=== PATIENT | female | born 1970 | race Caucasian/White ===

== ENCOUNTER 2025-08-09 19:14 | Emergency (ER) | payer BC, SELFPAY ==
[2025-08-09 19:19] VITALS: BP 170/89; PULSE 89; TEMP 37.1; O2SAT 97; BMI 42.0
--- NOTE | 2025-08-09 19:48 | ED_ITS ---
HPI - Allergic Reaction General Chief complaint: Allergic Reaction Stated complaint: Allergic Reaction Time Seen by Provider: 08/09/25 19:25 Source: patient Mode of arrival: walk-in History of Present Illness HPI narrative: This 55-year-old female who has a soy allergy presents for evaluation of throat swelling and itching. The patient states she is allergic to soy and last night had a shredded chicken sandwich that had been cooked in some soup that likely contains soy. She took a Benadryl this morning. She denies any difficulty breathing but states she feels like her throat is somewhat swollen. She denies any nausea or vomiting. She does not have any chest pain or shortness of breath. Related Data Allergies Allergy/AdvReac Type Severity Reaction Status Date / Time No Known Drug Allergies Allergy Verified 08/09/25 19:19 Review of Systems ROS Status of ROS 10 or more systems reviewed and unremark able except as noted in history and below PFSH PFSH Social History Little interest or pleasure in doing things: not at all Feeling down, depressed, or hopeless: not at all Exam Narrative Exam Narrative: Vital signs and Nursing Notes reviewed: Patient is afebrile with a normal pulse, blood pressure is elevated 170/89, she is not hypoxic with pulse ox of 97% on room air General: Awake, alert, oriented, no acute distress, lying comfortably on the stretcher-speaking complete sentences, no distress noted HEENT: Normocephalic atraumatic, mucous membranes are moist and pink, eyes are clear, normal conjunctiva, vision is grossly intact, posterior pharynx is normal in appearance without swelling of the tongue, uvula or pharyngeal soft tissues, no pooling of secretions, no sublingual swelling or swelling in the anterior neck Neck: Supple, no stridor Chest: Lungs are clear to auscultation with good air entry, there is no wheezing rhonchi or rales appreciated no accessory muscle use, patient is speaking in complete sentences- CVS: Regular rate and rhythm S1-S2, no murmurs rubs or gallops, pulses are brisk and equal bilaterally ABD: Soft, nondistended, nontender, no rebound guarding or rigidity, bowel sounds are normal, no pulsatile masses appreciated Extremities: Moving all extremities, no lower extremity tenderness or swelling noted, negative Homans' sign, pulses are brisk and equal bilaterally Skin: Normal in appearance without urticaria, pallor or other rash Neuro: No focal deficits Constitutional Vital Signs, click to edit/add: Last Vital Signs Temp 98.7 F 08/09/25 19:19 Pulse 89 08/09/25 19:19 Resp 16 08/09/25 19:19 BP 170/89 H 08/09/25 19:19 Pulse Ox 97 08/09/25 19:19 O2 Del Method Room Air 08/09/25 19:19 Course Vital Signs Vital signs: Vital Signs Temperature 98.7 F 08/09/25 19:19 Pulse Rate 89 08/09/25 19:19 Respiratory Rate 16 08/09/25 19:19 Blood Pressure 170/89 H 08/09/25 19:19 Pulse Oximetry 97 08/09/25 19:19 Oxygen Delivery Method Room Air 08/09/25 19:19 Temperature 98.7 F 08/09/25 19:19 Pulse Rate 89 08/09/25 19:19 Respiratory Rate 16 08/09/25 19:19 Blood Pressure 170/89 H 08/09/25 19:19 Pulse Oximetry 97 08/09/25 19:19 Oxygen Delivery Method Room Air 08/09/25 19:19 MDM - Allergic Reaction MDM Narrative Medical decision making narrative: This 55-year-old female who is allergic to soy presents for evaluation of some throat swelling and itching after having a shredded chicken sandwich that had been cooked in a soup that likely contained soy last night for dinner. She took a Benadryl earlier in the day. She does not have any diffuse hives. There is no swelling of her tongue, uvula or pharyngeal soft tissues, she does not have any stridor, her vital signs are stable with a mild elevation in her blood pressure. An IV was placed and she was medicated with IV Pepcid, Solu-Medrol and Benadryl. On reevaluation she feels that her symptoms have improved. She will be discharged home with a prescription for Solu-Medrol and Pepcid. She states she will be more diligent and not eating things that contain soy in the future. She found out that she had a soy allergy after having years of hives and undergoing extensive allergy testing. She does not have any angioedema, her lungs are clear, she does not have any oxygen requirements and is stable for discharge. Discharge Plan Discharge Chief Complaint: Allergic Reaction Clinical Impression: Allergic reaction Patient Disposition: Home, Self-Care Time of Disposition Decision: 20:42 Condition: Good Print Language: Japanese Instructions: General Allergic Reaction (ED) Referrals: HEIDY MELLO [Primary Care Provider, [facility]] - 1 week
[2025-08-09] MEDS: FAMOTIDINE/PF 20 MG/2 ML VIAL IV (19:56)
[2025-08-09] MEDS: DIPHENHYDRAMINE HCL 50 MG/ML VIAL 25 MG IVP (19:57)
[2025-08-09] MEDS: METHYLPREDNISOLONE SOD SUCC PF 125 MG/2 ML VIAL IVP (19:57)
--- OUTSIDE RECORDS SUMMARY | 2025-08-09 20:00 | XMS_ITS | Clinical Summary ---
Author Organization [facility] Address [address] [place], [place] [address] Care Team Providers Care Diesel Technician Mechanic Name Role Phone Jeffry Encarnacion DO Primary Care Provider [phone] Ben Samayoa MD Unavailable Allergies Active AllergyReactionsCriticalityNoted AxwfDgnaqjapFgjUeawo68/28/2024 Medications MedicationSigDispense QuantityRefillsLast FilledStart DateEnd DateStatus ICER MACHINE OPERATOR THYROID 120 mg tablet every 48 hours.12/31/2023ctive ICER MACHINE OPERATOR THYROID 90 mg tablet every 48 hours.01/24/2024ctive Melatonin 5 mg cap Take by mouth daily at bedtime.Active ibuprofen (MOTRIN) 800 mg tablet Take 800 mg by mouth two times a day.Active cetirizine (ZYRTEC) 10 mg tablet Take 10 mg by mouth once daily.Active evolocumab 140 mg/mL subcutaneous pen injector (REPISIDROA RUBY) Indications:Familial hypercholesteremiaInject 140 mg subcutaneously every 2 weeks. 6 Each ctive Active Problems ProblemNoted DateDiagnosed DateObesity, Class II, BMI 35-39.9004/14/2024Familial etxxzvalionwtmxgwr43/28/2024Statin pcaokqtpjro05/28/2024Family history of cardiac kekvnetr78/28/2024 Social History Tobacco UseTypesPacks/DayYears UsedDateSmoking Tobacco: NeverSmokeless Tobacco: NeverAlcohol UseStandard Drinks/WeekCommentsNot Currently0 (1 standard drink = 0.6 oz pure alcohol)PHQ-2AnswerDate RecordedPHQ-2 [id number] Deprivation IndexAnswerDate RecordedNational Score (1-100), lower number is lower tuep638704/14/2024State Score (1-10), lower number is lower scsg890 Data from: https://www.neighborhoodatlas.medicine.[facility]/. Last address used for [address] [facility] [id number] and Gender InformationValueDate RecordedSex Assigned at EahiwHpmnwq64/08/2024 6:01 PM EST Legal DvjXgvvfa42/08/2024 7:50 AM ESTGender GnpugtchMlkdga72/08/2024 6:01 PM EST Sexual KjgofrwjepsBbpopuap57/08/2024 6:01 PM EST Last Filed Vital Signs Vital SignReadingTime TakenCommentsBlood Tfatzlrg145/78004/14/2024 11:52 AM EDT Jrupd732904/14/2024 11:52 AM EDTTemperature--Respiratory Rate--Oxygen Saturation-- Inhaled Oxygen Concentration--Gdpkrw672.6 kg (239 lb 8 oz)04/14/2024 11:52 AM MTWFovwhr110.4 cm (5' 5.5 )04/14/2024 11:52 AM EDTBody Mass Index39.25004/14/2024 11:52 AM EDT Plan of Treatment Health MaintenanceDue DateLast DoneCommentsAnxiety Lueilrwdd19/24/1988Depression Zwtexvlre69/24/1988HIV Yswxybtvn73/24/1988Hepatitis C Ixkvriaae65/24/1988 Hepatitis B Vaccine (1 of 3 - 19+ 3-dose series)1989Cervical Cancer Vcdzsktut57/24/1991Mammogram Hfarmjazx83/24/2010CT Rfdwqdtmiktt34/24/2015 Cologuard (FIT-DNA)06/10/20155007Fmncyvxpeej47/24/2015Colorectal Cancer Screening 2015Diabetes Rwebbrwkn34/24/2015Fecal Occult Blood2015Sigmoidoscopy 2015Pneumococcal Vaccine: 50+ (1 of 1 - PCV)2020Shingrix Vaccine (1 of 2)2020DTaP,Tdap,Td Vaccine (2 - Td or Tdap)/10/2014Covid-19 Vaccine (1 - 2024- season)2025Influenza Vaccine (#1)2025Lipid Pkagvsvzi69SV Vaccine (1 - 1-dose 75+ series)2045 Goals GoalPatient Goal TypeAssociated ProblemsRecent ProgressPatient-Stated?Author Blood Pressure < 140/90 Blood Arlbveqk390/78(04/14/2024 11:52 AM EDT)Ben Fung MD Procedures Procedure NamePriorityDate/TimeAssociated DiagnosisCommentsLIPID PANEL, OHROWVDXOGHcvkksr03/28/2024 1:14 PM EDT Familial hypercholesteremia from Last 3 Months or Most Recently Relevant to Health Maintenance Results * (ABNORMAL) LIPID PANEL, NONFASTING (04/14/2024 1:14 PM EDT)ComponentValueRef RangeTest MethodAnalysis TimePerformed AtPathologist SignatureTotal Cholesterol, Uiiughxblj543(H)<200 mg/dL04/14/2024 5:01 PM EDC[facility] LABComment: <200 mg/dL, Desirable 200-239 mg/dL, Borderline high >239 mg/dL, High Triglycerides, Okyflzuhnc977(H)<150 mg/dL04/14/2024 5:01 PM EDCLEVEL[facility] LABComment: <150 mg/dL, Normal 150-199 mg/dL, Borderline high 200-499 mg/dL, High >499 mg/dL, Very high HDL Cholesterol, Mkjekudyim52>39 mg/dL04/14/2024 5:01 PM [facility]Comment: 40-59 mg/dL, Acceptable >59 mg/dL, High: Negative risk factor for coronary heart disease <40 mg/dL, Low: Positive risk factor for coronary heart disease LDL Cholesterol Calculated, Zhvfptjrxe574(H)<100 mg/dL04/14/2024 5:01 PM EDT [facility] LABComment: <100 mg/dL, Optimal 100-129 mg/dL, Near optimal/above optimal 130-159 mg/dL, Borderline high 160-189 mg/dL, High >189 mg/dL, Very high Secondary prevention optimal LDL Cholesterol levels are recommended to be < 70 mg/dL Non HDL Cholesterol, Gktejdnbne172(H)<130 mg/dL04/14/2024 5:01 PM [facility]Comment: <130 mg/dL, Optimal 130-159 mg/dL, Near optimal/above optimal 160-189 mg/dL, Borderline high 190-219 mg/dL, High >219 mg/dL, Very high Secondary prevention optimal non HDL Cholesterol levels are recommended to be <100 mg/dL VLDL Cholesterol, Hatxqmqskd52(H)<30 mg/dL04/14/2024 5:01 PM [facility] LABTotal Chol/HDL Ratio, Nonfasting4.35<5.10 mg/dL04/14/2024 5:01 PM [facility] LABLDL/HDL Ratio, Nonfasting2.71(H)<2.54 mg/dL 04/14/2024 5:01 PM [facility] LABComment: Reference: 1. National Cholesterol Education Program ATP III Guideline At-A-Glance Quick Desk Reference: National Heart, Lung, and Blood [place]. National Institutes of Health. 2001: NIH Publication No. 01-3305. 2. An International Atherosclerosis Society position paper: global recommendations for the management of dyslipidemia: executive summary, Atherosclerosis. 2014: 232(2):410-413. Specimen (Source)Anatomical Location / LateralityCollection Method / Volume Collection TimeReceived TimeBloodBLOOD SPECIMEN / UnknownVenipuncture / Unknown 04/14/2024 1:14 PM EDT04/14/2024 1:14 PM EDT Narrative Authorizing ProviderResult TypeResult StatusLupaolo Samayoa MDLABORATORYFinal Result Performing OrganizationAddressCity/State/ZIP CodePhone Number [facility] [address] [phone], from Last 3 Months or Most Recently Relevant [place] [address] Care Teams Team MemberRelationshipSpecialtyStart DateEnd Date Jeffry Encarnacion DO [address] [place] [id number] PCP - GeneralFamily Medicine10/24/23 Ben Samayoa MD [address] [place] [address] Primary Staff PhysicianCardiology04/14/24
--- OUTSIDE RECORDS SUMMARY | 2025-08-09 20:00 | XMS_ITS | Clinical Summary ---
Author Organization [facility] Address [address] [place] [address] Care Team Providers Care Crop Farmers Name Role Phone Jeffry Encarnacion Primary Care Provider [phone] Allergies Active AllergyReactionsCriticalityNoted DhtzYsafljssOhuuxjpwcbwy55/22/2022 Medications MedicationSigDispense QuantityRefillsLast FilledStart DateEnd DateStatus cholecalciferol (Vitamin D-3) 25 MCG (1000 UT) tablet Take 2 tablets by mouth in the morning.Active doxycycline (Vibramycin) 100 mg capsule take 1 capsule by mouth twice a day for 10 daysActive levothyroxine (Synthroid, Levoxyl) 125 mcg tablet Active Social History Tobacco UseTypesPacks/DayYears UsedDateSmoking Tobacco: Never Tobacco Cessation:Counseling Given: Not Answered [place] Safety & EnvironmentAnswerDate RecordedFear of Current or Ex-PartnerNot on file10/09/2023Emotionally AbusedNot on file10/09/2023hysically AbusedNot on file10/09/2023Sexually AbusedNot on file10/09/2023hysically or Sexually Abused Not on file10/09/2023CommentsUnknownSex and Gender InformationValueDate RecordedSex Assigned at BirthNot on fileLegal EaxRpzedv47/30/2022 12:41 AM EDT Gender IdentityNot on fileSexual OrientationNot on file Last Filed Vital Signs Vital SignReadingTime TakenCommentsBlood Pressure--Pulse--Temperature-- Respiratory Rate--Oxygen Saturation--Inhaled Oxygen Concentration--Lhtwdn340 kg (223 lb)11/28/2021 12:42 PM ZPFIotrhw583.6 cm (5' 6 )12/05/2021 9:00 AM EDTBody Mass Index35.9904 12:42 PM EDT Plan of Treatment Health MaintenanceDue DateLast DoneCommentsCT Qjwgxxrkzzkd1970Colonoscopy 1970Colorectal Cancer Jdzmayzui1970FIT-DNA1970FIT1970 FOBT1970 9861Htxqxinsdmzhw1970Depression Iclifmbmz09/24/1982Hepatitis B Vaccines (1 of 3 - 19+ 3-dose series)1989Pap Smear1991Cervical Cancer Nydebdbdu47/24/2000HPV/Qbpigu0906/10/20002983Ccdotulhk67/24/2010Zoster Vaccines (1 of 2)2020Adult Ovespce51/10/2014Influenza Vaccine (#1) 2025HIB VaccinesAged OutNo longer eligible based on patient's age to complete this topicHPV VaccinesAged OutNo longer eligible based on patient's age to complete this topicIPV VaccinesAged OutNo longer eligible based on patient's age to complete this topicMeningococcal B VaccineAged OutNo longer eligible based on patient's age to complete this topicMeningococcal VaccineAged OutNo longer eligible based on patient's age to complete this topicPneumococcal Vaccine: Pediatrics (0 to 5 Years) and At-Risk Patients (6 to 64 Years)Aged Out No longer eligible based on patient's age to complete this topicRotavirus VaccinesAged OutNo longer eligible based on patient's age to complete this topic Insurance Care Teams Team MemberRelationshipSpecialtyStart DateEnd Date Jeffry Encarnacion DO [address] [place] [address] PCP - [facility]04/15/22
--- OUTSIDE RECORDS SUMMARY | 2025-08-09 20:00 | XMS_ITS | Clinical Summary ---
Author Organization [facility] Address [address] [place] [address] Care Team Providers Care General Hardware Salesperson Name Role Phone Jeffry Encarnacion MD Primary Care Provider [phone] Allergies No known active allergies Medications MedicationSigDispense QuantityRefillsLast FilledStart DateEnd DateStatus levothyroxine (Synthroid, Levoxyl) 125 MCG tablet Active EPINEPHrine (Epipen) 0.3 MG/0.3ML injection syringe Indications:Allergy to honey bee venomInject 0.3 mL (0.3 mg) as directed if needed for anaphylaxis. Call 911 after use. 2 each ctive Active Problems ProblemNoted DateDiagnosed DateAllergy to honey bee venom04/09/2023 Social History Tobacco UseTypesPacks/DayYears UsedDateSmoking Tobacco: NeverSmokeless Tobacco: Never Tobacco Cessation:Counseling Given: Not Answered CommentsUnknownSex and Gender InformationValueDate RecordedSex Assigned at BirthNot on fileLegal NusAkvwne91/15/2023 6:57 PM EDTGender IdentityNot on fileSexual OrientationNot on file Last Filed Vital Signs Vital SignReadingTime TakenCommentsBlood Pressure--Pulse--Temperature-- Respiratory Rate--Oxygen Saturation--Inhaled Oxygen Concentration--Ynjcib382 kg (235 lb)04/09/2023 3:01 PM EUOEtlgri511.6 cm (5' 6 )04/09/2023 3:01 PM EDTBody Mass Index37.9304/09/2023 3:01 PM EDT Plan of Treatment Not on file Insurance Care Teams Team MemberRelationshipSpecialtyStart DateEnd Date Jeffry Encarnacion MD [address] [facility] [place] [address] PCP - GeneralFamily Medicine04/09/23
--- OUTSIDE RECORDS SUMMARY | 2025-08-09 20:00 | XMS_ITS | Clinical Summary ---
Author Organization [facility] Address [address] [place] [address] Phone Care Team Providers Care Labor Relations Manager Name Role Phone Generic Provider, No Assigned Pcp MD Primary Car e Provider Unavailable Social History Tobacco UseTypesPacks/DayYears UsedDateSmoking Tobacco: Never Assessed CommentsUnknownSex and Gender InformationValueDate RecordedSex Assigned at Not on fileLegal BqwLiqtlj23/25/2022 10:52 PM ESTGender IdentityNot on file Sexual OrientationNot on file Plan of Treatment Health MaintenanceDue DateLast DoneCommentsCT Pjohnytvkdto1970Colonoscopy 1970Colorectal Cancer Ldvhrpzvu1970FIT-DNA (Cologuard)1970FIT 1970HIV Cwokdfjyf1970Lipid Panel1970 0961Hhliydqbmlhcr1970 Yearly Adult Wzcckdsv1970MMR Vaccines (1 of 1 - Standard series)1971 Hepatitis C Itdujscft38/24/1988Hepatitis A Vaccines (1 of 2 - Risk 2-dose series)1989Hepatitis B Vaccines (1 of 3 - 19+ 3-dose series)1989 Cervical Cancer Cmjwoxvnz21/24/1991HPV/Vqvcph2506/10/1991Pap Smear1991 Qbdsltjsm72/24/2010Pneumococcal Vaccine (1 of 1 - PCV)2020Zoster Vaccines (1 of 2)2020Influenza Vaccine (#1)2025DTaP/Tdap/Td Vaccines (2 - Td or Tdap)/10/2014COVID-19 Vaccine (1 - 2024- season)2025HIB VaccinesAged OutNo longer eligible based on patient's age to complete this topic HPV VaccinesAged OutNo longer eligible based on patient's age to complete this topicIPV VaccinesAged OutNo longer eligible based on patient's age to complete this topicMeningococcal VaccineAged OutNo longer eligible based on patient's age to complete this topicRotavirus VaccinesAged OutNo longer eligible based on patient's age to complete this topic Insurance * Guarantor: Viv Vazquez TypeRelation to PatientDate of BirthPhone Billing AddressPersonal/PcibufHcfw[address] [place] [address] * Guarantor: Viv Vazquez TypeRelation to PatientDate of BirthPhone Billing AddressPersonal/BxuxxxKowd1970 [address] [place] [address] Care Teams Team MemberRelationshipSpecialtyStart DateEnd Date Generic Provider, No Assigned PcpMD PCP - [facility]07/01/23
[2025-08-09 20:52] VITALS: PULSE 84; O2SAT 100
== END 2025-08-09 20:56 | disposition home or self-care (01) ==
PROVIDERS: Emergency Provider Emergency Medicine; PCP Family Medicine
DX: T78.19XA Other adverse food reactions, not elsewhere classified, initial encounter (principal)
CPT/HCPCS: 96374; 96375; 99284; J1200; J2919; J3490